=== PATIENT | female | born 1970 | race Asian ===

== ENCOUNTER 2019-08-11 10:18 | Day surgery (SDC) | payer OTHER ==
[~2019-08-11] VITALS: Ht 165.1 cm; Wt 59.0 kg
[2019-08-11] MEDS ORDERED: LIDOCAINE 2% 100 MG/5 ML UJET TP ONE (13:21)
[2019-08-11] MEDS ORDERED: KETOROLAC 60 MG/2 ML VIAL IM ONE ×2 (13:39→13:45)
== END 2019-08-11 14:30 | disposition home or self-care (01) ==
LOC: MDS 10:18 → MTU 10:18 → MDS 14:30
PROVIDERS: ATTEND Internal Medicine Gastroenterology
DX: K62.5 Hemorrhage of anus and rectum (principal); D12.5 Benign neoplasm of sigmoid colon; K62.3 Rectal prolapse; K64.4 Residual hemorrhoidal skin tags
CPT/HCPCS: 45380; 81025; J1885